=== PATIENT | female | born 2005 | race Caucasian/White ===

== ENCOUNTER 2024-10-29 08:44 | Day surgery (SDC) | payer BC, MEDICAID, SELFPAY ==
--- NOTE | 2024-10-28 13:36 | PAT.ANESEVAL ---
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 When Was Last Pacemaker Check QUESTION #4 FULL TEXT: You/Your Family Experience fever (hyperthermia) with Anesthesia Last Oral Intake Last Oral intake: Last Oral Intake NPO since Meds taken in AM with sips of water? Meds patient instructed to take am of surgery PONV PONV - multi operation machine operator: PONV - multi operation machine operator Female Yes 10/27/24 12:36 HX of Motion Sickness No 10/27/24 12:36 HX of N/V After Surgery No 10/27/24 12:36 Non-Smoker No 10/27/24 12:36 Duration of Surgery greater No 10/27/24 12:36 than 60 minutes Number of Risk Factors 1 10/27/24 12:36 PONV Score Low Risk 10/27/24 12:36 Height & Weight Height & Weight: Anesthesia: Height & Weight Height 5 ft 1.5 in 09/10/24 10:37 Respiratory Assessment Respiratory Assessment - multi operation machine operator: Respiratory Tract Infection Hx - multi operation machine operator Hx Respiratory Tract Infection No 10/27/24 12:36 STOP Sleep Apnea STOP Sleep Apnea - multi operation machine operator: STOP Sleep Apnea - multi operation machine operator Hx Hypertension No 10/27/24 12:36 Hx Sleep Apnea No 10/27/24 12:36 CPAP BIPAP Do you snore loudly (louder No 10/27/24 12:36 than talking or can be heard Do you often feel tired/ No 10/27/24 12:36 fatigued/ sleepy during daytime? Has anyone observed you stop No 10/27/24 12:36 breathing during sleep? STOP Results Negative 10/27/24 12:36 QUESTION #5 FULL TEXT : Do you snore loudly (louder than talking or can be heard through closed doors)? 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 Specify any problems Hx of Preganancy in last 3 No 10/27/24 12:36 Months Nurse Filling Out Transfusion VCHRISTIN 10/27/24 12:36 & Questions: Date: 10/27/24 10/27/24 12:36 Time: 12:38 10/27/24 12:36 Patient unable to answer at this time (ie. confused, unrespo /Reproduction History /Reproductive History - multi operation machine operator: /Reproductive Hx- multi operation machine operator Hx Now No 10/27/24 12:36 Gestational Age (in weeks): EDC: Hx Hx Para Hx Section SAB No 10/27/24 12:36 [facility] Medical History (Updated 10/27/24 @ 12:36 by Kylie Stoddard) Wears glasses Depression Anxiety History of steroid therapy Back pain Injury of back Migraine headache History of ulceration Gastric reflux Vapes nicotine containing substance History of Holter monitoring Tilt table evaluation History of echocardiogram Cardiology follow-up encounter History of irregular heartbeat History of stomach ulcers POTS (postural orthostatic tachycardia syndrome) Migraine Home Medications ?Medication ?Instructions ?Recorded ?Last Taken ?Type sumatriptan succinate 50 mg tablet See Rx Instructions PO .COMPLEX 09/09/24 Unknown History (Imitrex) albuterol sulfate 90 mcg/actuation 2 puff inhalation Q4H PRN PRN 10/27/24 Unknown History aerosol inhaler wheezing esomeprazole magnesium 40 mg 40 mg PO QDAY #30 caps 10/27/24 Unknown Rx capsule,delayed release hydroxyzine pamoate 50 mg capsule 50 mg PO Q8H PRN PRN anxiety 10/27/24 Unknown History Allergy/AdvReac Type Severity Reaction Status Date / Time promethazine Allergy Severe sedation Verified 10/27/24 12:25 red (food color) Allergy Intermediate personal Verified 10/27/24 12:25 choice, not real allergy yellow dye Allergy Intermediate personal Verified 10/27/24 12:25 choice, not real allergy sulfamethoxazole (From AdvReac Intermediate throat itch Verified 10/27/24 12:25 Bactrim) trimethoprim (From Bactrim) AdvReac Intermediate throat itch Verified 10/27/24 12:25 Family History (Updated 09/10/24 @ 11:49 by Suzanne Lopez) Father Hypertension Depression Melanoma Grandfather CVA (cerebral vascular accident) Diabetes Brain bleed Arthritis Uncle CVA (cerebral vascular accident) Myocardial infarction Aunt Thyroid disorder Cancer neck, spine, liver Social History Smoking Status: Current every day smoker tobacco type: e-cigarettes Electronic Cigarette Use: with nicotine alcohol intake: never substance use type: marijuana Audit: Pertinent Findings Pertinent Findings EKG Perinent findings: EKG performed 06/02/2024: Normal sinus rhythm, normal EKG Consult pertinent findings: Cardiology note dated 07/30/2023 Was to obtain 7-day Holter monitor. Holter monitor showed a maximum heart rate of 183 and an average heart rate of 106 which showed predominantly sinus rhythm. There were no worrisome dysrhythmias. Cardiovascular autonomic test panel performed 04/19/2022 was shown to have no significant cardiovagal or cardiovascular adrenergic abnormality. Recommendation Anesthesia Recommendation Anesthesia recommendation: OPTIMIZED for anesthesia
[2024-10-29] VITALS (9 sets, daily range): BP systolic 93–117; BP diastolic 56–77; PULSE 86–112; RESP 16; TEMP 36.1–36.6; O2SAT 93–97; BMI 42.4
--- NOTE | 2024-10-29 09:11 | HP.PCM_ITS ---
HPI - General General Date of Admission: 10/29/24 Date of Service: 10/29/24 Chief Complaint: GERD, nausea, bloating and abdominal pain HPI Narrative HERIBERTO CURIEL, is a 19 F who presents with upper abdominal pain. - RUQ, stabbing and radiates around to her back, nausea, all greasy and acidic foods cause the pain, has been taking Omeprazole since 11y/o and not helping the pain ABD US 09/04/2023 - CBD 0.3cm - reports a history of gastric ulcers - c/o bad stomach acid and HB - reports she had this same issue when she was in highschool and was puking blood - she has been on Omeprazole 20mg BID - one week ago woke up with bad stomach acid in middle of the night, burning in throat, took a dose of Omeprazole it did not help, bad reflux, was able to fall back asleep sitting up - these symptoms persisted through the weekend - denies any emesis - nausea - she avoids eating at night - denies any dysphagia - weight gain weight gain over what period of time and how much do think was 178 40lbs prior to 6 months ago, weight has been stable the past 6 months - epigastric pain - denies any prior EGD scared to do it CAFFEINE: 1-4 pepsi or diet coke a day (20oz) until last SMOKING: vaping EtOH: denies any NSAIDS: denies - drinking milk before bed the past few nights has helped - Maternal GF with colon CA * [facility] Medical History Wears glasses Depression Anxiety History of steroid therapy Back pain Injury of back Migraine headache History of ulceration Gastric reflux Vapes nicotine containing substance History of Holter monitoring Tilt table evaluation History of echocardiogram Cardiology follow-up encounter History of irregular heartbeat History of stomach ulcers POTS (postural orthostatic tachycardia syndrome) Migraine Home Medications ?Medication ?Instructions ?Recorded ?Last Taken ?Type sumatriptan succinate 50 mg tablet See Rx Instructions PO .COMPLEX 09/09/24 Unknown History (Imitrex) albuterol sulfate 90 mcg/actuation 2 puff inhalation Q 4H PRN PRN 10/27/24 Unknown History aerosol inhaler wheezing esomeprazole magnesium 40 mg 40 mg PO QDAY #30 caps Unknown Rx capsule,delayed release hydroxyzine pamoate 50 mg capsule 50 mg PO Q8H PRN PRN anxiety 10/27/24 Unknown History Allergy/AdvReac Type Severity Reaction Status Date / Time promethazine Allergy Severe sedation Verified 10/27/24 12:25 red (food color) Allergy Intermediate personal Verified 10/27/24 12:25 choice, not real allergy yellow dye Allergy Intermediate personal Verified 10/27/24 12:25 choice, not real allergy sulfamethoxazole (From AdvReac Intermediate throat itch Verified 10/27/24 12:25 Bactrim) trimethoprim (From Bactrim) AdvReac Intermediate throat itch Verified 10/27/24 12:25 Family History Father Hypertension Depression Melanoma Grandfather CVA (cerebral vascular accident) Diabetes Brain bleed Arthritis Uncle CVA (cerebral vascular accident) Myocardial infarction Aunt Thyroid disorder Cancer neck, spine, liver Social History Smoking Status: Current every day smoker tobacco type: e-cigarettes Electronic Cigarette Use: with nicotine alcohol intake: never substance use type: marijuana ROS Constitutional Constitutional: Denies fatigue, fever(s), poor appetite, weight gain or weight loss Gastrointestinal Gastrointestinal: Denies belching, bloating, change in bowel habits, change in stool character, chewing difficulty, coffee ground emesis, constipation, cramping, diarrhea, dyspepsia, dysphagia, early satiety, excessive flatus, fecal incontinence, heartburn, hematemesis, hematochezia, hemorrhoids, loose stools, melena, nausea, odynophagia, rectal bleeding, tenesmus, vomiting or weight changes Physical Exam Const alert, oriented x3, no apparent distress and healthy appearing General Appearance: cooperative GI normal to inspection, nondistended, normoactive bowel sounds, soft to palpation, non-tender and non-distended Percussion: normal to percussion Rectal Exam: deferred Assessment & Plan Assessment/Plan (1) GERD (gastroesophageal reflux disease): (2) Heartburn: (3) Nausea: (4) RUQ abdominal pain: PLAN: Assessment and Plan Assessment and Plan (1) GERD (gastroesophageal reflux disease): Status: Acute Plan: The patient will be switched from omeprazole to a newer medication, a potassium- competitive acid kendra (PCAB), to better manage her GERD symptoms. The new medication can be taken with or without food and has a longer duration of action compared to omeprazole. An upper endoscopy is planned to evaluate the esophagus and stomach for Soni's esophagus and other potential complications. (2) Obesity: Status: Acute Plan: The patient's weight gain is noted as a potential contributing factor to her GERD symptoms, and lifestyle modifications may be necessary to address this issue. Medications: New vonoprazan (Voquezna) take once daily in the morning with or without food 20 mg PO QDAY 90 tabs 0RF Plan The patient is a 19-year-old female with a history of gastroesophageal reflux disease GERD) presenting with exacerbated symptoms of severe stomach acid and heartburn. The symptoms have persisted despite the use of omeprazole, indicating a need for medication adjustment and further evaluation. The patient's weight gain may contribute to increased intra-abdominal pressure, exacerbating reflux symptoms. Given the chronicity of her symptoms and family history of gastrointestinal malignancies, an upper endoscopy is recommended to assess for Soni's esophagus and other potential complications Patient Instructions: - Start Voquezna as prescribed, taking it once daily in the morning. - Schedule and prepare for the upper endoscopy as instructed by the healthcare team. - Avoid caffeine and vaping to help reduce reflux symptoms. - Monitor weight and consider lifestyle changes to manage weight gain. - GERD Diet
[2024-10-29] MEDS: Lactated Ringers 1,000 ML 15 ML IV (09:28)
[2024-10-29 09:33] LABS: Internal QC Validated? YES +Cl - CLEAR BKGD; Pregnancy, Urine Negative Negative; Record Kit Lot#,Urine Preg 0000962302
--- NOTE | 2024-10-29 09:45 | EGD_PTH ---
PATIENT: HERIBERTO CURIEL LOC: EN U#:[id number] AGE/SX: 19/F ROOM: RE10/29/[address]: Dr. Juancarlos Lundberg DO : 2005 BED: DIS: 10/29/2024 SPEC #: [id number] RECD: 10/29/24 12:04 STATUS: VITALIY ARMIN #: [id number] ANN: 10/29/24 09:[address]: Juancarlos Lundberg DEPT: SURGICAL PATHOLOGY RECD BY: Yahir Saunders ENTERED: 10/29/24 13:59 SP TYPE: EGD BIOPSY CUAUHTEMOC DR: Dr. Sanjuanita Jameson DO Tissues: A - Esophagus, NOS Procedures: Special Stain Group I Surgery Specimen Level IV GMS Stain (control) HEADER OPERATION: EGD, biopsy PRE-OP DIAGNOSIS: GERD, heartburn, nausea, right upper quadrant abdominal pain TISSUE SUBMITTED: A- Distal esophagus biopsy MICROSCOPIC DIAGNOSIS A. Distal esophagus, biopsy: - Squamous mucosa with mild acute inflammation and up to 12 eosinophils per high power field. - PASD stain is negative for fungal organisms. MICROSCOPIC DESCRIPTION Slides are reviewed. ?All matched controls reacted appropriately. These tests were developed and their performance characteristics determined by [facility]. They may not have been cleared or approved by the U.S. Food and Drug Administration. The FDA has determined that such clearance or approval is not necessary.? The above immunohistochemical?markers and/or special stains have been reviewed by the Pathologist. GROSS DESCRIPTION A. Received in fixative is one container labeled with the patient's name and designated Distal esophagus biopsy. The specimen consists of multiple irregular fragments of light hernandez soft tissue that in aggregate measure 0.9 x 0.4 x 0.1 cm. The specimen is totally submitted in one cassette. LA 10/29/2024 CPT:00755 ,75278
--- NOTE | 2024-10-29 09:56 | PRE.ANES_ITS ---
ASA Classification* ASA Classification ASA Classification: 3 Assessment & Plan Anesthesia* Anesthesia Assessment Anesthesia Assessment: Discussed sedation and/or anesthesia options, risks, benefits, and alternatives with patient/parents/legal guardian/POA. Questions invited. The patient/parents/legal guardian/POA seems to understand and agrees to proceed with anesthesia plan. Reviewed the physical assessment, medical history, allergy history and patient home medications list prior to surgery/procedure/anesthetic and documented any changes. Performed airway and anesthesia risk assessments. 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 When Was Last Pacemaker Check QUESTION #4 FULL TEXT: You/Your Family Experience fever (hyperthermia) with Anesthesia Last Oral Intake Last Oral intake: Last Oral Intake NPO since 22:45 10/29/24 09:19 Meds taken in AM with sips of No 10/29/24 09:19 water? Meds patient instructed to take am of surgery PONV PONV - pharmaceutical specialty representative: PONV - pharmaceutical specialty representative Female Yes 10/27/24 12:36 HX of Motion Sickness No 10/27/24 12:36 HX of N/V After Surgery No 10/27/24 12:36 Non-Smoker No 10/27/24 12:36 Duration of Surgery greater No 10/27/24 12:36 than 60 minutes Number of Risk Factors 1 10/27/24 12:36 PONV Score Low Risk 10/27/24 12:36 Height & Weight Height & Weight: Anesthesia: Height & Weight Height 5 ft 1 in 10/29/24 09:19 Weight: 101.9 kg 10/29/24 09:19 Body Mass Index (BMI) 42.4 10/29/24 09:19 Respiratory Assessment Respiratory Assessment - pharmaceutical specialty representative: Respiratory Tract Infection Hx - pharmaceutical specialty representative Hx Respiratory Tract Infection No 10/27/24 12:36 STOP Sleep Apnea STOP Sleep Apnea - pharmaceutical specialty representative: STOP Sleep Apnea - pharmaceutical specialty representative Hx Hypertension No 10/27/24 12:36 Hx Sleep Apnea No 10/27/24 12:36 CPAP BIPAP Do you snore loudly (louder No 10/27/24 12:36 than talking or can be heard Do you often feel tired/ No 10/27/24 12:36 fatigued/ sleepy during daytime? Has anyone observed you stop No 10/27/24 12:36 breathing during sleep? STOP Results Negative 10/27/24 12:36 QUESTION #5 FULL TEXT : Do you snore loudly (louder than talking or can be heard through closed doors)? 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 Specify any problems Hx of Preganancy in last 3 No 10/27/24 12:36 Months Nurse Filling Out Transfusion VCHRISTIN 10/27/24 12:36 & Questions: Date: 10/27/24 10/27/24 12:36 Time: 12:38 10/27/24 12:36 Patient unable to answer at this time (ie. confused, unrespo /Reproduction History /Reproductive History - pharmaceutical specialty representative: /Reproductive Hx- pharmaceutical specialty representative Hx Now No 10/27/24 12:36 Gestational Age (in weeks): EDC: Hx Hx Para Hx Section SAB No 10/27/24 12:36 Active Medications Active Medications: Current Medications Generic Name Dose Route Start Last Admin Trade Name Freq PRN Reason Stop Dose Admin Lactated Ringer's 1,000 mls @ 15 mls/hr 10/29/24 09:00 10/29/24 09:28 IV 15 mls/hr .Q48H ZUHAIR Administration PFSH Medical History Wears glasses Depression Anxiety History of steroid therapy Back pain Injury of back Migraine headache History of ulceration Gastric reflux Vapes nicotine containing substance History of Holter monitoring Tilt table evaluation History of echocardiogram Cardiology follow-up encounter History of irregular heartbeat History of stomach ulcers POTS (postural orthostatic tachycardia syndrome) Migraine Home Medications ?Medication ?Instructions ?Recorded ?Last Taken ?Type sumatriptan succinate 50 mg tablet See Rx Instructions PO .COMPLEX 09/09/24 Unknown History (Imitrex) albuterol sulfate 90 mcg/actuation 2 puff inhalation Q 4H PRN PRN 10/27/24 Unknown History aerosol inhaler wheezing esomeprazole magnesium 40 mg 40 mg PO QDAY #30 caps Unknown Rx capsule,delayed release hydroxyzine pamoate 50 mg capsule 50 mg PO Q8H PRN PRN anxiety 10/27/24 Unknown History Allergy/AdvReac Type Severity Reaction Status Date / Time promethazine Allergy Severe sedation Verified 10/27/24 12:25 red (food color) Allergy Intermediate personal Verified 10/27/24 12:25 choice, not real allergy yellow dye Allergy Intermediate personal Verified 10/27/24 12:25 choice, not real allergy sulfamethoxazole (From AdvReac Intermediate throat itch Verified 10/27/24 12:25 Bactrim) trimethoprim (From Bactrim) AdvReac Intermediate throat itch Verified 10/27/24 12:25 Family History Father Hypertension Depression Melanoma Grandfather CVA (cerebral vascular accident) Diabetes Brain bleed Arthritis Uncle CVA (cerebral vascular accident) Myocardial infarction Aunt Thyroid disorder Cancer neck, spine, liver no surgical history Social History Smoking Status: Current every day smoker tobacco type: e-cigarettes Electronic Cigarette Use: with nicotine alcohol intake: never substance use type: marijuana Review of Systems (Anesthesia) ROS Narrative System reviewed and no additional complaints, except as documented.
--- NOTE | 2024-10-29 10:26 | OP.EGD_ITS ---
Patient Name: Liana Castanon Procedure Date: 10/29/2024 10:06 AM Date of : 2005 Age: 19 Procedure: Upper GI endoscopy Indications: Functional Dyspepsia, Heartburn Providers: Juancarlos Lundberg DO Medicines: Monitored Anesthesia Care Patient Profile: This is a 19 year old female. Refer to note in patient chart for documentation of history and physical. Patient has symptoms of acute abdominal cramping, acute abdominal distention, chronic dyspepsia and chronic heartburn. Complications: No immediate complications. Procedure: Pre-Anesthesia Assessment: - Prior to the procedure, a History and Physical was performed, and patient medications and allergies were reviewed. The patient is competent. The risks and benefits of the procedure and the sedation options and risks were discussed with the patient. All questions were answered and informed consent was obtained. Patient identification and proposed procedure were verified by the physician in the pre-procedure area. Mental Status Examination: alert and oriented. Airway Examination: normal oropharyngeal airway and neck mobility. Respiratory Examination: clear to auscultation. CV Examination: normal. Prophylactic Antibiotics: The patient does not require prophylactic antibiotics. Prior Anticoagulants: The patient has taken no anticoagulant or antiplatelet agents except for NSAID medication. ASA Grade Assessment: II - A patient with mild systemic disease. After reviewing the risks and benefits, the patient was deemed in satisfactory condition to undergo the procedure. The anesthesia plan was to use monitored anesthesia care (MAC). Immediately prior to administration of medications, the patient was re-assessed for adequacy to receive sedatives. The heart rate, respiratory rate, oxygen saturations, blood pressure, adequacy of pulmonary ventilation, and response to care were monitored throughout the procedure. The physical status of the patient was re-assessed after the procedure. After obtaining informed consent, the endoscope was passed under direct vision. Throughout the procedure, the patient's blood pressure, pulse, and oxygen saturations were monitored continuously. The gastroscope was introduced through the mouth, and advanced to the second part of duodenum. The upper GI endoscopy was accomplished without difficulty. The patient tolerated the procedure well. Scope In: 10:20:02 AM Scope Out: 10:21:41 AM Total Procedure Duration Time 0 hours 1 minute 39 seconds Findings: Non-severe esophagitis with no bleeding was found 36 to 38 cm from the incisors. Biopsies were taken with a cold forceps for histology. Verification of patient identification for the specimen was done. Estimated blood loss was minimal. Suspect gastroparesis due to absence of peristalsis, patient symptoms and retained gastric contents. No gross lesions were noted in the entire examined duodenum. Impression: - Non-severe reflux esophagitis with no bleeding. Biopsied. - Gastroparesis. - No gross lesions in the entire examined duodenum. Recommendation: - Discharge patient to home. - Resume previous diet. - Continue present medications. - Await pathology results. - Gastric emptying study Procedure Code(s): --- Professional --- 61676, Esophagogastroduodenoscopy, flexible, transoral; with biopsy, single or multiple CPT copyright 2021 [employer]. All rights reserved. The codes documented in this report are preliminary and upon product builder review may be revised to meet current compliance requirements. Juancarlos Lundberg DO 10/29/2024 10:26:14 AM This report has been signed electronically. Number of Addenda: 0 Note Initiated On: 10/29/2024 10:06 AM
--- NOTE | 2024-10-29 10:26 | OP.PROVAT_ITS ---
10/29/2024 Sanjuanita Jameson Re : Upper GI endoscopy procedure for Liana Castanon Dear Trino This procedure was performed on October. My impressions and recommendations are as follows: Impressions : - Non-severe reflux esophagitis with no bleeding. Biopsied. - Gastroparesis. - No gross lesions in the entire examined duodenum. Recommendations : - Discharge patient to home. - Resume previous diet. - Continue present medications. - Await pathology results. - Gastric emptying study My findings are described in the full procedure note, which is enclosed. If I can be of further assistance, please feel free to contact me at . Sincerely, Juancarlos Lundberg DO 10/29/2024 10:26:14 AM This report has been signed electronically.
--- NOTE | 2024-10-29 10:32 | PCM.POST.ANE ---
Anesthesia: Postop Eval I Current Vital Signs Temperature: 97 F Pulse Rate: 109 Blood Pressure: 93/56 Respiratory Rate: 16 Pulse Ox: 93 Assessment Airway patent: Yes Spontaneous unlabored respirations: Yes Mental status: Asleep nausea: No Vomiting: No Anesthesia Complication: No Fluid Hydration Crystalloid volume administer (ml): 300 Total IV fluid infused: 300 Progress Note Anesthesia document: Postop Eval 1 completed: Yes
== END 2024-10-29 11:18 | disposition home or self-care (01) ==
LOC: EN 08:53 → AC 08:55
PROVIDERS: Anesthesiology; PCP Family Medicine; Referring Provider Family Medicine; Visit Provider Internal Medicine Gastroenterology
PROC: 0DJ08ZZ Inspection of Upper Intestinal Tract, Via Natural or Artificial Opening Endoscopic (ICD-10-PCS; CPT 43235; principal; 2024-10-29 09:40)
DX: K21.00 Gastro-esophageal reflux disease with esophagitis, without bleeding (principal); Z68.41 Body mass index [BMI] 40.0-44.9, adult; K31.84 Gastroparesis; F17.290 Nicotine dependence, other tobacco product, uncomplicated; E66.9 Obesity, unspecified; Z79.899 Other long term (current) drug therapy
CPT/HCPCS: 43239; 81025; 88305; 88312; J2405